=== PATIENT | male | born 1950 | race Caucasian/White ===

== ENCOUNTER 2016-10-19 10:09 | Emergency (ER) | payer MEDICARE ==
--- NOTE | 2016-10-19 12:32 | RAD ---
INDICATION: Head injury. COMPARISON: Comparison is made with a prior CT of the brain from November 25, 2006. TECHNIQUE: Contiguous axial sections of the brain were obtained from the skull base to the vertex without contrast. FINDINGS: The ventricles, cisterns and sulci are within normal limits. There are small areas of decreased density in the subcortical and periventricular white matter suggestive of mild chronic small vessel ischemic changes. No other focal abnormality or mass effect is seen. There is no evidence for hemorrhage. No significant focal osseous abnormality is seen. The visualized portion of the paranasal sinuses and mastoid air cells appear clear. IMPRESSION: NO EVIDENCE FOR ACUTE INTRACRANIAL ABNORMALITY.
--- NOTE | 2016-10-19 12:37 | RAD ---
INDICATION: Facial trauma. COMPARISON: There are no prior studies available for comparison. TECHNIQUE: Contiguous axial sections of the axial images of the facial bones were obtained and reconstructed in the coronal and sagittal planes. FINDINGS: Soft tissue swelling is noted in the left maxillary region. The monroe of the orbits and maxillary sinuses appear intact. The zygomatic arches appear intact. There is no evidence for a fracture of the mandible. The nose is deviated toward the right side. No nasal bone fracture is seen. There is moderate to severe deviation of the nasal septum toward the left side. The pterygoid plates appear intact. The paranasal sinuses appear clear. IMPRESSION: SOFT TISSUE SWELLING, NO FRACTURE IS SEEN.
--- NOTE | 2016-10-19 12:42 | RAD ---
INDICATION: Trauma. COMPARISON: There are no prior studies available for comparison. TECHNIQUE: Contiguous axial sections were obtained beginning above the T1 vertebra and scanning through the L1 vertebra. Images were reconstructed in the sagittal and coronal planes. FINDINGS: There is a mild dorsal scoliosis convex toward the left in the upper dorsal region and toward the right in the lower dorsal region. There is also a slightly exaggerated dorsal dorsal kyphosis in the lower dorsal spine. No fracture is seen. There is mild to moderate diffuse degenerative disc disease. No significant spinal canal narrowing is noted. IMPRESSION: NO EVIDENCE FOR FRACTURE.
--- NOTE | 2016-10-19 12:52 | RAD ---
INDICATION: Trauma, back pain. COMPARISON: There are no prior studies available for comparison. TECHNIQUE: Contiguous axial sections were obtained beginning above the L1 vertebra and continuing through the L5-S1 disc space. Images were reconstructed in the sagittal and coronal planes. FINDINGS: There is mild retrolisthesis of L3 relative to L4 of approximately 3 mm which is likely degenerative in origin. No fracture is seen. At the L1-L2 level there is a mild broad-based disc bulge and mild hypertrophic changes within the facet joints which causes mild spinal canal narrowing. Neural foramen appear patent on both sides. At the L2-L3 level there is a mild broad-based disc bulge and mild hypertrophic changes within the facet joints. No spinal canal or neural foraminal narrowing is seen. At the L3-L4 level there is a [id number] broad-based disc bulge and mild hypertrophic changes within the facet joints. There is moderate spinal canal narrowing and mild bilateral neural foraminal narrowing. At the L4-L5 level there is a mild broad-based disc bulge and moderate hypertrophic changes within the facet joints. There is mild to moderate spinal canal narrowing and mild bilateral neural foraminal narrowing. The L5-S1 level there is a mild broad-based disc bulge and mild to moderate hypertrophic changes within the facet joints. No significant spinal canal narrowing is seen. There is mild bilateral neural foraminal narrowing. IMPRESSION: 1. NO EVIDENCE FOR FRACTURE. 2. MODERATE LUMBAR SPONDYLOSIS.
--- NOTE | 2016-10-19 12:58 | RAD ---
Indication: Lateral RIGHT ankle pain following rolling injury. Comparison: No relevant prior exams available on the [facility] for comparison. Technique: AP, mortise, and lateral views RIGHT ankle. Report: Negative for fracture or malalignment. Mild talocrural joint osteophytosis. No suggestion of talocrural joint effusion. Mild nonfocal soft tissue swelling about the ankle. Small Achilles tendon insertion enthesophyte. IMPRESSION: Mild nonfocal soft tissue swelling. Negative for fracture or malalignment. Mild osteoarthritis.
[2016-10-19 14:10] VITALS: BP 157/90
--- NOTE | 2016-10-19 18:18 | ED ---
Ben Vasquez Claudia, scribed for Esteban Reyes MD on 10/19/16 at 1209 . Complex/Multi-Sys Presentation - HPI Summary HPI Summary: 66 year old male presents to the ED after suffering a mechanical fall in the parking lot of [facility] [place], [place]. Pt was visiting someone in the hospital and suffered a fall. Pt states he simply tripped and it was not due to any dizziness, lightheaded or syncopal episode. He notes that when he fell he twisted his right ankle and landed on his knees and face. Pt reports some facial pain to his left maxilla and pain to the lateral aspect of his right ankle as well as some thoracic back pain. Pt denies any LOC but admits to epistaxis and some lacerations to his face that have now stopped bleeding. He also denies any other associated Sx of fever, chills, vomiting, diarrhea, nausea, dental pain, diplopia, blurred vision, blood from his ears, numbness under his eyes, slurred speech or any numbness, abd pain, CP, SOB. Pt denies any alleviating or aggravating factors at this time. Pt is not DM and is not currently on any blood thinners. - History Of Current Complaint Chief Complaint: EDFacialInjury Time Seen by Provider: 10/19/16 11:37 Hx Obtained From: Patient Onset/Duration: Sudden Onset, Still Present Timing: Minutes Associated Signs And Symptoms: Positive: Back Pain, Other - no neck pain. Negative: SOB, Chest Pain, Nausea, Vomiting, Diarrhea, Abdominal Pain - Allergies/Home Medications Allergies/Adverse Reactions: Allergies Allergy/AdvReac Type Severity Reaction Status Date / Time No Known Allergies Allergy Verified 07/30/16 12:22 Home Medications: Home Medications Aspirin EC Low Dose* [Ecotrin EC Low Dose 81 MG*] 81 mg PO DAILY 10/19/16 [ History Confirmed 10/19/16] PMH/Surg Hx/FS Hx/Imm Hx Previously Healthy: Yes Endocrine/Hematology History: Denies: Hx Diabetes Cardiovascular History: Reports: Hx Hypertension - Immunization History Date of Tetanus Vaccine: 2015 Infectious Disease History: No Infectious Disease History: Denies: Traveled Outside the [place] in Last 30 Days - Family History Known Family History: Positive: Hypertension - Social History Occupation: Employed Full-time Lives: With Family Alcohol Use: None Substance Use Type: Reports: None Smoking Status (MU): Never Smoked Tobacco Review of Systems Constitutional: Negative Negative: Fever, Chills Eyes: Negative Positive: Epistaxis, Other - pain over the left maxilla Cardiovascular: Negative Negative: Chest Pain Respiratory: Negative Negative: Shortness Of Breath Gastrointestinal: Negative Negative: Abdominal Pain, Vomiting, Diarrhea, Nausea Genitourinary: Negative Positive: Other - back pain, right ankle pain Skin: Negative Neurological: Negative Psychological: Normal All Other Systems Reviewed And Are Negative: Yes Physical Exam - Summary Physical Exam Summary: The patient is well-nourished in no acute distress and in no acute pain. The skin is warm and dry and skin color reflects adequate perfusion. ABRASION TO THE UPPER LIP. HEENT: The head is normocephalic and atraumatic. The pupils are equal and reactive. The conjunctivae are clear and without drainage. Nares are patent and without drainage. Mouth reveals moist mucous membranes and the throat is without erythema and exudate. The external ears are intact. The ear canals are patent and without drainage. The tympanic membranes are intact. NO HEMOTYMPANUM. TENDERNESS OVER THE LEFT MAXILLA NO TENDERNESS OVER THE ZYGOMATIC. NO STEP-OFF. Neck is supple with full range of motion and non-tender. There are no carotid bruits. There is no neck vein distension. Respiratory: Chest is non-tender. Lungs are clear to auscultation and breath sounds are symmetrical and equal. Cardiovascular: Hear is regular rate and rhythm. There is no murmur or rub auscultated. There is no peripheral edema and pulses are symmetrical and equal. NO CP. Abdomen: The abdomen is soft and non-tender. There are normal bowel sounds heard in all four quadrants and there is no organomegaly palpated. Musculoskeletal: There is no back pain noted. Extremities are non-tender with full range of motion. There is good capillary refill. There is no peripheral edema or calf tenderness elicited. ABRASION TO THE RIGHT KNEE. SMALLER ABRASION TO THE LEFT KNEE. TENDER T6-T8. TENDERNESS AT THE RIGHT ANKLE LATERAL MALLEOLUS , NO TENDERNESS AT THE BASE OF THE 5TH METATARSAL OF THE RIGHT ANKLE, OR THE CALCANEOUS. MOST PAIN IS OVER THE DISTAL FIBULA. Neurological: Patient is alert and oriented to person, place and time. The patient has symmetrical motor strength in all four extremities. Cranial nerves are grossly intact. Deep tendon reflexes are symmetrical and equal in all four extremities. Psychiatric: The patient has an appropriate affect and does not exhibit any anxiety or depression. Triage Information Reviewed: Yes Vital Signs On Initial Exam: Initial Vitals Temp Pulse Resp BP 96.3 F 65 20 187/79 10/19/16 10:11 10/19/16 10:11 10/19/16 10:11 10/19/16 10:11 Vital Signs Reviewed: Yes - Kayode Coma Scale Coma Scale Total: 15 Diagnostics - Vital Signs Vital Signs Temp Pulse Resp BP Pulse Ox 10/19/16 10:24 97.6 F 67 18 180/84 95 10/19/16 10:15 97.7 F 64 20 187/79 97 10/19/16 10:11 96.3 F 65 20 187/79 - Laboratory Lab Statement: Any lab studies that have been ordered have been reviewed, and results considered in the medical decision making process. - Radiology ANKLE XR Xray Interpretation: No Acute Changes - Mild nonfocal soft tissue swelling. Negative for fracture or malalignment. Mild osteoarthritis. Radiology Interpretation Completed By: Radiologist - CT BRAIN CT CT Interpretation: No Acute Changes - NO EVIDENCE FOR ACUTE INTRACRANIAL ABNORMALITY. CT Interpretation Completed By: Radiologist LUMBAR SPINE CT CT Interpretation: No Acute Changes - 1. NO EVIDENCE FOR FRACTURE. 2. MODERATE LUMBAR SPONDYLOSIS. CT Interpretation Completed By: Radiologist MAXILLOFACIAL CT CT Interpretation: No Acute Changes - SOFT TISSUE SWELLING, NO FRACTURE SEEN CT Interpretation Completed By: Radiologist THORACIC SPINE CT CT Interpretation: No Acute Changes - NO EVIDENCE FOR FRACTURE CT Interpretation Completed By: Radiologist Re-Evaluation - Re-Evaluation 1 Re-Evaluation Time: 13:43 Comment: Imgaing is discussed with the pt whom is agreeable with the plan to be d/c home and follow-up with his PCP and return for any new or worsening Sx. Complex Multi-Symp Course/Dx Assessment/Plan: MDM: Pt reports to the ED after suffering a mechanical fall. After CT Brain, CT maxillofacial, XR of R ankle, CT Thoracic and Lumbar spine all imaging showing no fractures just soft tissue swelling the pt will be d/c home with ice, elevate and ibuprofen. Pt is offerred a ankle brace for his sprained ankle but denies and will follow-up with PCP. - Diagnoses Differential Diagnoses/HQI/PQRI: Other - fracture, closed head trauma, ankle fracture, ankle sprain, facial fracture, nasal fracture, facial abrasion Provider Diagnoses: Sprained ankle, Facial abrasion, Back pain, Contusion Discharge - Discharge Plan Condition: Stable Disposition: HOME Patient Education Materials: Abrasion (ED), Contusion in Adults (ED), Ankle Sprain (ED) Referrals: Gardenia George MD [Primary Care Provider] - 2 Days Additional Instructions: Ice, elevate and Ibuprofen/Tylenol as needed. The documentation as recorded by the Ben zavala Claudia accurately reflects the service I personally performed and the decisions made by Amy granda Drew, MD.
== END 2016-10-19 14:09 | disposition home or self-care (01) ==
LOC: ED 10:09
DX: R04.0 Epistaxis (principal); S00.81XA Abrasion of other part of head, initial encounter; M25.571 Pain in right ankle and joints of right foot; M54.9 Dorsalgia, unspecified; T14.8 Other injury of unspecified body region; M54.2 Cervicalgia; W19.XXXA Unspecified fall, initial encounter; Y93.9 Activity, unspecified; Y92.9 Unspecified place or not applicable
CPT/HCPCS: 70450; 70486; 72128; 72131; 99282